=== PATIENT | male | born 1970 | race Caucasian/White ===

== ENCOUNTER 2020-04-22 15:40 | Observation (INO) | payer OTHER ==
[~2020-04-22] VITALS: Ht 188 cm; Wt 111.5 kg
--- NOTE | 2020-04-22 16:08 | PHYS DOC ---
General Adult EDM: Chief Complaint: CHEST PAIN HPI: HPI: History gained from patient. Patient is a 41-year-old male with no reported past medical history significant for anxiety with chief complaint chest pain. Patient states he had intermittent chest pain for the past 2 weeks. He states that it seems to be a sharp pain that transitions to a dull aching pain. He states it resolved with aspirin usage. He also notes that he has had more exertional dyspnea than typical. Denies any exertional chest pain. Denies any radiation of the chest pain. States that he does see meloxicam daily for chronic musculoskeletal back pain but states this feels different. Also takes Ativan as needed for anxiety but states this feels different. Denies any story of invasive cardiac testing himself. Does note a family history of coronary artery disease at young age. He states that he drinks 3-4 alcoholic beverages per night. Denies any drug or tobacco abuse. Has cough or fever. Does note some associated nausea and diaphoresis with the pain. Does state that he exercises regularly and this does not cause discomfort however. Denies food alleviating or exacerbating symptoms. Patient denies any history of immobilization greater than 48 hours, recent hospitalizations, recent surgery, recent trauma, , oral contraceptive usage, hormone replacement therapy, air travel greater than 8 hours, recent infectious disease, or general deterioration of their overall condition. Review of Systems: Review of Systems: Constitutional: Denies fever or chills Eyes: Denies change in visual acuity HENT: Denies nasal congestion or sore throat Respiratory: Positive shortness of breath Cardiovascular: Positive for chest pain GI: Denies abdominal pain, nausea, vomiting, bloody stools or diarrhea : Denies dysuria Musculoskeletal: Denies back pain or joint pain Integument: Denies rash Neurologic: Denies headache, focal weakness or sensory changes Endocrine: Denies polyuria or polydipsia Lymphatic: Denies swollen glands Psychiatric: Denies depression or anxiety Physical Exam: PE: Constitutional: Well developed, well nourished, no acute distress, non-toxic appearance. [] HENT: Normocephalic, atraumatic, bilateral external ears normal, oropharynx moist, no oral exudates, nose normal. [] Eyes: PERRLA, EOMI, conjunctiva normal, no discharge. [] Neck: Normal range of motion, no tenderness, supple, no stridor. [] Cardiovascular:Heart rate regular rhythm, no murmur [] Lungs & Thorax: Bilateral breath sounds clear to auscultation [] Abdomen: Bowel sounds normal, soft, no tenderness, no masses, no pulsatile masses. [] Skin: Warm, dry, no erythema, no rash. [] Back: No tenderness, no CVA tenderness. [] Extremities: No tenderness, no cyanosis, no clubbing, ROM intact, no edema. [] Neurologic: Alert and oriented X 3, normal motor function, normal sensory function, no focal deficits noted. [] Psychologic: Affect normal, judgement normal, mood normal. [] Current Patient Data: Labs: Laboratory Tests Test 04/22/20 15:54 White Blood Count 7.8 x10^3/uL Red Blood Count 4.87 x10^6/uL Hemoglobin 14.2 g/dL Hematocrit 43.0 % Mean Corpuscular Volume 88 fL Mean Corpuscular Hemoglobin 29 pg Mean Corpuscular Hemoglobin Concent 33 g/dL Red Cell Distribution Width 13.7 % Platelet Count 270 x10^3/uL Neutrophils (%) (Auto) 63 % Lymphocytes (%) (Auto) 28 % Monocytes (%) (Auto) 6 % Eosinophils (%) (Auto) 2 % Basophils (%) (Auto) 1 % Neutrophils # (Auto) 4.9 x10^3uL Lymphocytes # (Auto) 2.2 x10^3/uL Monocytes # (Auto) 0.5 x10^3/uL Eosinophils # (Auto) 0.2 x10^3/uL Basophils # (Auto) 0.1 x10^3/uL Sodium Level 141 mmol/L Potassium Level 4.4 mmol/L Chloride Level 106 mmol/L Carbon Dioxide Level 27 mmol/L Anion Gap 8 Blood Urea Nitrogen 26 mg/dL Creatinine 1.7 mg/dL Estimated GFR (Cockcroft-Gault) 43.2 BUN/Creatinine Ratio 15 Glucose Level 89 mg/dL Calcium Level 9.4 mg/dL Total Bilirubin 0.3 mg/dL Aspartate Amino Transf (AST/SGOT) 24 U/L Alanine Aminotransferase (ALT/SGPT) 35 U/L Alkaline Phosphatase 71 U/L Troponin I Quantitative < 0.017 ng/mL Total Protein 6.8 g/dL Albumin 3.8 g/dL Albumin/Globulin Ratio 1.3 Lipase 118 U/L Current Medications Medications (Trade) Dose Ordered Sig/Sabrina Route PRN Reason Start Time Stop Time Status Last Admin Dose Admin Nitroglycerin (Nitrostat) 0.4 mg PRN Q5MIN PRN SL CHEST PAIN 04/22/20 16:30 04/22/20 16:49 Vital Signs: Vital Signs Date Time Temp Pulse Resp B/P (MAP) Pulse Ox O2 Delivery O2 Flow Rate FiO2 04/22/20 16:49 64 121/83 04/22/20 15:40 97.9 16 132/98 (109) 97 Room Air EKG: EKG: [] EKG consistent with normal sinus rhythm. Ventricular rate of 63 bpm. Left axis noted. Nonspecific T wave normality noted in lead III. No acute ischemic changes appreciated. Radiology/Procedures: Radiology/Procedures: [place] [address] IMAGING REPORT Signed PATIENT: BLANCO ARCINIEGA ACCOUNT: [id number] : 1970 LOCATION: ER AGE: 49 SEX: M EXAM STATUS: PRE ER ORD. PHYSICIAN: ROSETTA CHARLTON DO REASON: CP PROCEDURE: CHEST AP ONLY EXAMINATION: XR CHEST 1V CLINICAL HISTORY: Chest pain EXAM DATE/TIME: 04/22/2020 4:14 PM COMPARISON: None FINDINGS: Lines, Tubes, and Devices: None. Cardiomediastinal Silhouette: Normal heart size. Lungs and Pleura: No evidence of focal airspace consolidation or pleural effusion. Pulmonary vasculature unremarkable. Bones and Soft Tissues: No acute osseous abnormality. IMPRESSION: No evidence of acute cardiopulmonary abnormality. Electronically signed by: Maicol Catalan DO (04/22/2020 4:30 PM) [id number] DICTATED AND SIGNED BY: MAICOL CATALAN DO DATE: 04/22/20 1626 CC: ROSETTA CHARLTON DO ~MTH0 0 [] Heart Score: HEART Score for Chest Pain: HEART Score for Chest Pain Response (Comments) Value History Moderately Suspicious 1 ECG Nonspecific Repolarizatio 1 Age >45 - < 65 1 Risk Factors 1 or 2 Risk Factors 1 Troponin < Normal Limit 0 Total 4 Risk Factors: Risk Factors: DM, Current or recent (<one month) smoker, HTN, HLP, family history of CAD, obesity. Risk Scores: Score 0 - 3: 2.5% MACE over next 6 weeks - Discharge Home Score 4 - 6: 20.3% MACE over next 6 weeks - Admit for Clinical Observation Score 7 - 10: 72.7% MACE over next 6 weeks - Early Invasive Strategies Course & Med Decision Making: Course & Med Decision Making Pertinent Labs and Imaging studies reviewed. (See chart for details) [] Patient is a 49-year-old male who presents with chief complaint of intermittent chest pain over the past 2 weeks. He does note increased exertional dyspnea. Patient's chest pain symptoms are vague and poorly described. Difficult to elicit his typical cardiac symptoms, not. He does report a family history of coronary artery disease with exertional dyspnea. EKG without acute ischemic changes noted. D-dimer obtained per request of hospitalist. Is currently pending. Patient shows no signs of hypoxia or tachypnea however. He did get some relief with 1 dose of nitroglycerin. He did take 2 baby aspirin's prior to arrival. Additional 2 aspirins will be administered here. I do feel the patient would benefit from hospitalization for cardiac evaluation. Patient is agreeable for this. Signout given to hospitalist. Eveline Disclaimer: Eveline Disclaimer: This electronic medical record was generated, in whole or in part, using a voice recognition dictation system. Departure Departure: Impression: Primary Impression: Chest pain of uncertain etiology Additional Impression: Alcohol abuse Disposition: ADMITTED INPT THIS HOSP Condition: STABLE ROSETTA CHARLTON DO Apr 22, 2020 16:08
--- NOTE | 2020-04-22 16:13 | EKG ---
[address] [address] Test Date: 2020-04-22 Test Time: 15:43:40 Pat Name: BLANCO ARCINIEGA Department: Room: Gender: M Refrigeration Person: DIONNE : 1970 Requested By: ROSETTA CHARLTON Order Number: [id number] Reading MD: Measurements Intervals [place] Rate: 63 P: 48 NC: 162 QRS: 4 QRSD: 104 T: 20 QT: 384 QTc: 396 Interpretive Statements SINUS RHYTHM NORMAL ECG RI6.02 No previous ECG available for comparison
[2020-04-22] MEDS ORDERED: NITROGLYCERIN SUBLINGUAL 0.4 MG BOTTLE OF 25. SL PRN (16:30)
--- NOTE | 2020-04-22 16:32 | RAD ---
EXAMINATION: XR CHEST 1V CLINICAL HISTORY: Chest pain EXAM DATE/TIME: 04/22/2020 4:14 PM COMPARISON: None FINDINGS: Lines, Tubes, and Devices: None. Cardiomediastinal Silhouette: Normal heart size. Lungs and Pleura: No evidence of focal airspace consolidation or pleural effusion. Pulmonary vasculat ure unremarkable. Bones and Soft Tissues: No acute osseous abnormality. IMPRESSION: No evidence of acute cardiopulmonary abnormality. Electronically signed by: Maicol Farah DO (04/22/2020 4:30 PM) [id number]
[2020-04-22 16:34] LABS: BASO # 0.1 x10^3/uL (0.0-0.2); BASO % 1 % (0-3); EOS # 0.2 x10^3/uL (0.0-0.7); EOS % 2 % (0-3); HEMOGLOBIN 14.2 g/dL (13.0-17.5); LYMPH # 2.2 x10^3/uL (1.0-4.8); LYMPH % 28 % (24-48); MEAN CORPUSCULAR HEMOGLOBIN 29 pg (25-35); MEAN CORPUSCULAR HGB CONC 33 g/dL (31-37); MEAN CORPUSCULAR VOLUME 88 fL (79-100); MONO # 0.5 x10^3/uL (0.0-1.1); MONO % 6 % (0-9); NEUT # 4.9 x10^3uL (1.8-7.7); NEUT % 63 % (31-73); PLATELET COUNT 270 x10^3/uL (140-400); RED BLOOD COUNT 4.87 x10^6/uL (4.30-5.70); RED CELL DISTRIBUTION WIDTH 13.7 % (11.5-14.5); WHITE BLOOD COUNT 7.8 x10^3/uL (4.0-11.0)
[2020-04-22 16:42] LABS: CALCIUM 9.4 mg/dL (8.5-10.1); CREATININE 1.7 mg/dL (0.7-1.3); GFR 43.2; POTASSIUM 4.4 mmol/L (3.5-5.1)
[2020-04-22 16:47] LABS: ALBUMIN 3.8 g/dL (3.4-5.0); ALBUMIN/GLOBULIN RATIO 1.3 (1.0-1.7); TOTAL BILIRUBIN 0.3 mg/dL (0.2-1.0); TOTAL PROTEIN 6.8 g/dL (6.4-8.2)
[2020-04-22] MEDS ORDERED: ASPIRIN CHEWABLE 81 MG TABLET. PO ONE (17:15)
[2020-04-22 19:00] VITALS: BP 138/88
[2020-04-22] MEDS ORDERED: SERT100T PO (20:01)
[2020-04-22] MEDS ORDERED: MELO15TA23 PO (20:01)
[2020-04-22] MEDS ORDERED: LORA-434 PO (20:01)
[2020-04-22] MEDS ORDERED: ASPI325T8 PO (20:01)
[2020-04-22 23:20] VITALS: BP 112/73
--- NOTE | 2020-04-22 23:20 | NUR ---
The patient, BLANCO ARCINIEGA, 49 y/o, M admitted by EULA OWEN MD, was given written information regarding hospital policies, unit procedures and contact persons. Pt accompanied onto the unit by EMS personnel and nursing track supervisor via [facility]. Pt ambulated from [place] to bed independently. Pt reports that he has been having intermittent chest pain for 2 weeks. Pt drinks 3-5 glasses of wine/beers most days of the week, pt states that he knows he needs to cut back. Pt oriented to room and plan of care. Valuables were checked and left in room with pt. Call light and phone within reach.
[2020-04-23 05:32] VITALS: BP 125/75
--- NOTE | 2020-04-23 05:43 | NUR ---
consult called [facility] cardiology.
[2020-04-23 06:30] LABS: BASO # 0.1 x10^3/uL (0.0-0.2); BASO % 1 % (0-3); EOS # 0.3 x10^3/uL (0.0-0.7); EOS % 3 % (0-3); HEMATOCRIT 44.6 % (39.0-53.0); HEMOGLOBIN 14.6 g/dL (13.0-17.5); LYMPH # 2.4 x10^3/uL (1.0-4.8); LYMPH % 33 % (24-48); MEAN CORPUSCULAR HEMOGLOBIN 29 pg (25-35); MEAN CORPUSCULAR HGB CONC 33 g/dL (31-37); MEAN CORPUSCULAR VOLUME 88 fL (79-100); MONO # 0.6 x10^3/uL (0.0-1.1); MONO % 9 % (0-9); NEUT % 55 % (31-73); PLATELET COUNT 259 x10^3/uL (140-400); RED BLOOD COUNT 5.06 x10^6/uL (4.30-5.70); RED CELL DISTRIBUTION WIDTH 13.9 % (11.5-14.5); WHITE BLOOD COUNT 7.4 x10^3/uL (4.0-11.0)
[2020-04-23] MEDS ORDERED: LORazepam 1 MG TABLET PO PRN (06:30)
[2020-04-23 07:18] LABS: CALCIUM 8.8 mg/dL (8.5-10.1); CREATININE 1.4 mg/dL (0.7-1.3); GFR 54.1; POTASSIUM 4.1 mmol/L (3.5-5.1)
[2020-04-23] MEDS ORDERED: ASPIRIN 325 MG TABLET PO SCH (08:00)
[2020-04-23] MEDS ORDERED: SERTRALINE 100 MG TABLET. PO SCH (09:00)
[2020-04-23 10:41] VITALS: BP 117/76
[2020-04-23 15:51] VITALS: BP 124/78
[2020-04-23] MEDS ORDERED: PANT40TA3 PO (15:58)
--- NOTE | 2020-04-23 16:14 | PDOC2 ---
CARDIAC CONSULT DATE OF CONSULT DOS: DATE: 04/23/20 TIME: 16:11 REASON FOR CONSULT Reason for Consult Chest pain REFERRING PHYSICIAN Referring Physician Dr. Brown SOURCE Source: Chart review, Patient HPI History of Present Illness The patient is a 49-year-old male who was admitted through the emergency room for episodes of chest discomfort. Patient has been having episodes of chest discomfort over the past several weeks. He also has chronic musculoskeletal pain in his back. The patient stated this pain was different than his baseline pain. EKG has shown no significant changes and no ischemia. Troponin has been normal x3. D-dimer is normal at less than 0.19. Chest x-ray shows no acute changes. PAST MEDICAL HISTORY Musculoskeletal: low back pain PAST SURGICAL HISTORY Past Surgical History: No pertinent history FAMILY HISTORY Family History: Hypertension CURRENT MEDICATIONS Current Medications Current Medications Nitroglycerin (Nitrostat) 0.4 mg PRN Q5MIN PRN SL CHEST PAIN Last administered on 04/22/20at 16:49; Start 04/22/20 at 16:30 Aspirin (Aspirin Chewable) 162 mg 1X ONCE PO ; Start 04/22/20 at 17:15; Stop 04/22/20 at 17:16; Status DC Lorazepam (Ativan) 1 mg PRN Q12HR PRN PO ANXIETY; Start 04/23/20 at 06:30 Sertraline HCl (Zoloft) 200 mg DAILY PO Last administered on 04/23/20at 07:22; Start 04/23/20 at 09:00 Aspirin (Elver Aspirin) 325 mg DAILYWBKFT PO Last administered on 04/23/20at 07:22; Start 04/23/20 at 08:00 Active Scripts Active Reported Ativan (Lorazepam) 1 Mg Tablet 1 Mg PO PRN Q12HR PRN Aspirin 325 Mg Tablet 650 Mg PO BID Zoloft (Sertraline Hcl) 100 Mg Tablet 200 Mg PO DAILY Meloxicam 15 Mg Tablet 15 Mg PO DAILY ALLERGIES Allergies: Coded Allergies: No Known Drug Allergies (Unverified , 04/22/20) ROS Cardiovascular: yes: Chest Pain VITALS Vital Signs Vital Signs Date Time Temp Pulse Resp B/P (MAP) Pulse Ox O2 Delivery O2 Flow Rate FiO2 04/23/20 15:51 97.2 63 20 124/78 (93) 95 Room Air 04/23/20 05:32 2.0 LABS LABS Laboratory Tests Test 04/22/20 15:54 04/22/20 17:05 04/22/20 22:25 04/23/20 05:50 White Blood Count 7.8 x10^3/uL (4.0-11.0) 7.4 x10^3/uL (4.0-11.0) Red Blood Count 4.87 x10^6/uL (4.30-5.70) 5.06 x10^6/uL (4.30-5.70) Hemoglobin 14.2 g/dL (13.0-17.5) 14.6 g/dL (13.0-17.5) Hematocrit 43.0 % (39.0-53.0) 44.6 % (39.0-53.0) Mean Corpuscular Volume 88 fL (79-100) 88 fL (79-100) Mean Corpuscular Hemoglobin 29 pg (25-35) 29 pg (25-35) Mean Corpuscular Hemoglobin Concent 33 g/dL (31-37) 33 g/dL (31-37) Red Cell Distribution Width 13.7 % (11.5-14.5) 13.9 % (11.5-14.5) Platelet Count 270 x10^3/uL (140-400) 259 x10^3/uL (140-400) Neutrophils (%) (Auto) 63 % (31-73) 55 % (31-73) Lymphocytes (%) (Auto) 28 % (24-48) 33 % (24-48) Monocytes (%) (Auto) 6 % (0-9) 9 % (0-9) Eosinophils (%) (Auto) 2 % (0-3) 3 % (0-3) Basophils (%) (Auto) 1 % (0-3) 1 % (0-3) Neutrophils # (Auto) 4.9 x10^3uL (1.8-7.7) 4.0 x10^3uL (1.8-7.7) Lymphocytes # (Auto) 2.2 x10^3/uL (1.0-4.8) 2.4 x10^3/uL (1.0-4.8) Monocytes # (Auto) 0.5 x10^3/uL (0.0-1.1) 0.6 x10^3/uL (0.0-1.1) Eosinophils # (Auto) 0.2 x10^3/uL (0.0-0.7) 0.3 x10^3/uL (0.0-0.7) Basophils # (Auto) 0.1 x10^3/uL (0.0-0.2) 0.1 x10^3/uL (0.0-0.2) Sodium Level 141 mmol/L (136-145) 142 mmol/L (136-145) Potassium Level 4.4 mmol/L (3.5-5.1) 4.1 mmol/L (3.5-5.1) Chloride Level 106 mmol/L (98-107) 106 mmol/L (98-107) Carbon Dioxide Level 27 mmol/L (21-32) 28 mmol/L (21-32) Anion Gap 8 (6-14) 8 (6-14) Blood Urea Nitrogen 26 mg/dL (8-26) 24 mg/dL (8-26) Creatinine 1.7 mg/dL (0.7-1.3) 1.4 mg/dL (0.7-1.3) Estimated GFR (Cockcroft-Gault) 43.2 54.1 BUN/Creatinine Ratio 15 (6-20) Glucose Level 89 mg/dL (70-99) 97 mg/dL (70-99) Calcium Level 9.4 mg/dL (8.5-10.1) 8.8 mg/dL (8.5-10.1) Total Bilirubin 0.3 mg/dL (0.2-1.0) Aspartate Amino Transf (AST/SGOT) 24 U/L (15-37) Alanine Aminotransferase (ALT/SGPT) 35 U/L (16-63) Alkaline Phosphatase 71 U/L (46-116) Troponin I Quantitative < 0.017 ng/mL (0-0.055) < 0.017 ng/mL (0-0.055) < 0.017 ng/mL (0-0.055) Total Protein 6.8 g/dL (6.4-8.2) Albumin 3.8 g/dL (3.4-5.0) Albumin/Globulin Ratio 1.3 (1.0-1.7) Lipase 118 U/L (73-393) D-Dimer (Lissa) < 0.19 mg/L (0.00-0.50) IMAGES IMAGES Chest x-ray with no acute changes. EKG EKG Sinus rhythm. No ischemic changes. ASSESSMENT/PLAN Assessment/Plan 1. Admission for chest pain. No ischemic EKG changes. Troponin normal x3. D- dimer normal. CRISTOPHER BREWER MD Apr 23, 2020 16:14
--- NOTE | 2020-04-23 16:18 | NUR ---
PATIENT IS DISCHARGED HOME, DISCHARGE INSTRUCTION AND PRESCRIBED MEDS REVIEWED , PHONE NUMBER FOR CARDIOLOGY GIVEN TO THE PATIENT TO MAKE AN APPOINTMENT. PATIENT VERBALIZED UNDERSTANDING. PATIENT LEFT ROOM 113 VIA AMBULATION ACCOMPANIED BY SELF.
--- NOTE | 2020-04-23 17:12 | HP ---
ADMIT DATE: 04/22/2020 HISTORY OF PRESENT ILLNESS: The patient is a 49-year-old male patient who presented to the Emergency Room with a complaint of chest pain. The pain is mostly when he wakes up. It is not really associated with exertion. He actually runs and climbs stairs. He normally can climb 2-3 stairs without difficulty after which he becomes short of breath, ____ he has no problem with that, and he can run for 2 miles according to him. He denied any pain on exertion. The pain is mostly retrosternal. It is not associated with any nausea or vomiting. Denied any diaphoresis. Denied any radiation. All this started about 2 weeks ago. He actually bought blood pressure monitor and noted his blood pressure is high, but he has never been officially diagnosed with hypertension. He has never been diagnosed with any other medical problems and he was extensively evaluated in the Emergency Room and has had an EKG, which showed that he was in sinus rhythm with a ventricular rate of 63 beats per minute, left axis deviation, nonspecific T waves, but no acute ischemic changes. His chest x-ray showed no evidence of acute cardiopulmonary abnormalities and his first set of cardiac enzymes showed troponin to be less than 0.017. The patient was admitted to do 2 more sets of cardiac enzymes and to consult the cardiology team. PAST MEDICAL HISTORY: Unremarkable. He did have a back injury for which he has been taking meloxicam and has also had a history tonsillectomy when he was 6 years old. ALLERGIES: He has no known drug allergies. MEDICATIONS: He is currently on Zoloft 200 mg daily. He is on Ativan 1 mg every 12 hours as needed. He is on meloxicam 15 mg daily and aspirin, he takes 650 mg p.o. b.i.d. FAMILY HISTORY: He has 2 brothers older and relatively healthy. One sister older has hypertension, gastroesophageal reflux disease. His father is still alive at the age of 79 and has total occlusion of his right internal carotid artery and partial occlusion of his left internal carotid artery and has apparently had a stroke, according to him, is known to have hypertension. His mother is alive at age of 80 and has hypertension. SOCIAL HISTORY: He is , has 2 daughters and 1 son. He never smoked. Drinks alcohol on a daily basis. He drinks actually wine and bourbon and does not use any drugs. 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 REVIEW OF SYSTEMS: As per history of present illness. PHYSICAL EXAMINATION: GENERAL: On arrival to the Emergency Room, he looked well and was clearly in no apparent respiratory distress. No pallor, jaundice, cyanosis, or thyromegaly. No jugular venous distention. No limb edema. VITAL SIGNS: His heart rate was 66, blood pressure was 132/98, temperature was 97.9, respiratory rate was 16, and oxygen saturation was 97%. HEAD, EYES, EARS, NOSE AND THROAT: Showed normocephalic, atraumatic. NECK: Supple. HEART: Showed normal first and second heart sounds. No gallop or murmur. CHEST: Shows central trachea, equal bilateral chest expansion, air entry, vesicular sounds. No crepitation or rhonchi. ABDOMEN: Distended, soft, nontender. NEUROLOGIC: He is grossly intact. LABORATORY DATA: His lab work on arrival to the Emergency Room showed a white cell count of 7800, hemoglobin 14, hematocrit 43, MCV 88, and platelet count of ____. His serum sodium was 141, potassium 4.4, chloride 106, bicarbonate 27, anion gap of 8, BUN 26, creatinine 1.7, estimated GFR was 43 mL per minute. His glucose was 89, calcium was 9.4. Total bilirubin, AST, ALT, alkaline phosphatase were normal. Total protein 6.8, albumin was 3.8 and lipase was 118. His D-dimer was less than 0.19. EKG showed that he was in sinus rhythm with heart rate of 63 per minute, and chest x-ray was unremarkable. His first set of cardiac enzyme showed the troponin to be less than 0.017. ASSESSMENT AND PLAN: The patient was admitted to telemetry bed to do 2 more sets of cardiac enzymes and to consult the cardiology team. The patient was advised that his symptoms probably are not typical for ischemic pain. He is on meloxicam and a large amount of aspirin, and he drinks alcohol ____ precipitate his gastroesophageal reflux disease. EULA OWEN MD DR: GUNNER/guanakito JOB#: [id number] / [id number]
--- NOTE | 2020-04-23 18:59 | DS ---
DATE OF DISCHARGE: 04/23/2020 HOSPITAL COURSE: The patient was admitted with chest pain that mostly wakes him up from sleep. It is not related to exertion. Denied any nausea or vomiting. He denied any diaphoresis or shortness of breath. He has had 3 sets of cardiac enzymes; all of them were less than 0.017. It transpired that the patient has back pain and has been taking meloxicam, as well as aspirin 650 mg twice a day. He also drinks daily wine and bourbon. PHYSICAL EXAMINATION: GENERAL: When I examined him this afternoon, he looked well and was clearly in no apparent respiratory distress. No pallor, jaundice, cyanosis, or thyromegaly. No jugular venous distention. No limb edema. VITAL SIGNS: Her heart rate was 63, blood pressure was 124/78, temperature was 97.2, respiratory rate 20, and oxygen saturation was 95%. The rest of her exam is stable. LABORATORY DATA: As of this morning showed a serum sodium of 142, potassium 4.1, chloride 106, bicarbonate 28, anion gap of 8, BUN 24, creatinine 1.4, estimated GFR was 54 mL per minute. His glucose was 97, calcium was 8.8. His third set of cardiac enzymes showed troponin to be less than 0.017. DISCHARGE MEDICATIONS: The patient was discharged home with a prescription for Protonix. I urged the patient to cut down on his aspirin to only a baby aspirin and avoid meloxicam altogether. FINAL DISCHARGE DIAGNOSES: Atypical chest pain, myocardial infarction was ruled out. His most likely diagnosis is gastroesophageal reflux disease. I spoke with Dr. Mg and the plan is for him to be followed as an outpatient, as he felt that the patient is safe to be discharged home, to be seen as an outpatient for outpatient ischemic workup. EULA OWEN MD DR: GUNNER/guanakito JOB#: [id number] / [id number]
== END 2020-04-23 16:20 | disposition home or self-care (01) ==
LOC: ER 15:40 → 1 SOUTH 16:55
PROVIDERS: ADMIT Internal Medicine; ATTEND Internal Medicine
DX: R07.89 Other chest pain (principal); K21.9 Gastro-esophageal reflux disease without esophagitis; F10.10 Alcohol abuse, uncomplicated; F41.9 Anxiety disorder, unspecified; M54.5 Low back pain; G89.29 Other chronic pain; Z79.82 Long term (current) use of aspirin
CPT/HCPCS: 36415; 71045; 80048; 80053; 80061; 83690; 84484; 85025; 85379; 93005; 99285; G0378; G0379